=== PATIENT | male | born 1995 | race Two or more races ===

== ENCOUNTER 2018-12-07 21:15 | Emergency (ER) | payer OTHER ==
[~2018-12-07] VITALS: Ht 170.2 cm; Wt 72.6 kg
[~2018-12-07 21:15] MED LIST: AMOX500 PO; CEPH500 PO; HYDACE5 PO; OXYACE5T PO; PENVK250 PO; Percocet 5-3251 EACH PO; RXPROM25 PO; RXTRAM50 PO; TRAM50 PO; Zovirax800 MG PO
[2018-12-07] MEDS ORDERED: KETO10 PO (22:12)
== END 2018-12-07 22:14 | disposition home or self-care (01) ==
LOC: ER 21:15
DX: M94.0 Chondrocostal junction syndrome [Tietze] (principal)
CPT/HCPCS: 99283

== ENCOUNTER 2024-12-09 09:33 | Emergency (ER) | payer SELFPAY ==
[~2024-12-09] VITALS: Ht 170.2 cm; Wt 79.4 kg
[~2024-12-09 09:33] MED LIST changes: +KETO10 PO
[2024-12-09 10:48] VITALS: BP 178/107
[2024-12-09 11:41] LABS: Influenza B, PCR NEGATIVE (NEGATIVE); Resp Syncytial Virus, PCR NEGATIVE (NEGATIVE); SARS-Cov-2 (COVID-19) PCR, MMC NEGATIVE (NEGATIVE)
[2024-12-09] MEDS ORDERED: Ibuprofen 600 MG Tab PO ONE (11:45)
[2024-12-09 11:46] LABS: Influenza A, PCR POSITIVE (NEGATIVE)
[2024-12-09] MEDS ORDERED: Tamiflu75 MG PO (11:52)
== END 2024-12-09 12:20 | disposition home or self-care (01) ==
LOC: ER 09:33
PROVIDERS: Physician Assistant
DX: J10.1 Influenza due to other identified influenza virus with other respiratory manifestations (principal)
CPT/HCPCS: 0241U; 71046; 99283-25; A9270